=== PATIENT | male | born 1985 | race Two or more races ===

== ENCOUNTER 2018-10-09 18:06 | Emergency (ER) | payer OTHER ==
[~2018-10-09] VITALS: Ht 172.7 cm; Wt 68.0 kg
[2018-10-09 18:18] VITALS: Ht 172.7 cm; Wt 68.0 kg
[2018-10-09 19:31] VITALS: BP 129/85
== END 2018-10-09 19:31 | disposition home or self-care (01) ==
LOC: ED 18:06
DX: J03.90 Acute tonsillitis, unspecified (principal)
CPT/HCPCS: J1100